=== PATIENT | female | born 1975 | race Caucasian/White ===

== ENCOUNTER 2018-02-21 18:23 | Emergency (ER) | payer BC, OTHER ==
[2018-02-21 18:52] VITALS: BP 96/61
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
[2018-02-21] MEDS ORDERED: HYDROcodone/ACETAMIN 5-325 MG* 1 TAB PO ONE ×2 (19:09→19:44)
--- NOTE | 2018-02-21 19:26 | RAD ---
HISTORY: fall with distal radius swelling COMPARISONS: None VIEWS: 3, Frontal, lateral, and oblique views of the left wrist FINDINGS: BONE DENSITY: Normal. BONES: There is an impacted and slightly volar angulated fracture of the distal radius with articular extension. There is a nondisplaced fracture of the styloid process of the ulna. JOINTS: There is no arthropathy. ALIGNMENT: There is no dislocation. SOFT TISSUES: Unremarkable. OTHER FINDINGS: None. IMPRESSION: ANGULATED, IMPACTED FRACTURE OF THE DISTAL RADIUS WITH ARTICULAR EXTENSION. NONDISPLACED FRACTURE OF THE STYLOID PROCESS OF THE ULNA.
== END 2018-02-21 20:00 | disposition home or self-care (01) ==
LOC: UCCORT 18:23
DX: S52.502A Unspecified fracture of the lower end of left radius, initial encounter for closed fracture (principal); S52.615A Nondisplaced fracture of left ulna styloid process, initial encounter for closed fracture; S60.511A Abrasion of right hand, initial encounter; V19.3XXA Pedal cyclist (driver) (passenger) injured in unspecified nontraffic accident, initial encounter; Y93.55 Activity, bike riding; Y92.9 Unspecified place or not applicable
CPT/HCPCS: 99213; G0463

== ENCOUNTER 2018-02-27 06:19 | Day surgery (SDC) | payer BC ==
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
[~2018-02-27 06:19] MED LIST: Buffered Lidocaine 0.9% SYRIN* 5 ML/SYR SYRINGE INTRADERM ONE; Sodium Citrate/Citric Acid* 15 ML UDC PO ONE
[2018-02-27] MEDS ORDERED: Sodium Citrate/Citric Acid* 15 ML UDC ONE (06:21)
[2018-02-27] MEDS ORDERED: ceFAZolin 2 GM PREMIX (*) 2 GM/50 ML BAG IVPB ONE (06:28)
[2018-02-27] MEDS ORDERED: ROPIVACAINE 5 MG/ML 30 ML BTL (0.5%) ONE ×2 (07:15→07:31)
[2018-02-27] MEDS ORDERED: fentaNYL* 50 MCG/ML 2 ML VIAL (100 MCG VIAL) ONE (07:28)
[2018-02-27] MEDS ORDERED: Propofol* 10 MG/ML 20 ML BTL IV PUSH ONE (07:28)
[2018-02-27] MEDS ORDERED: Midazolam* 1 MG/ML 2 ML VIAL (2 MG) ONE (07:28)
[2018-02-27] MEDS ORDERED: Lidocaine 2% PF * 5 ML VIAL ONE (07:28)
[2018-02-27] MEDS ORDERED: Ondansetron INJ* 2 MG/ML VIAL IV PRN (08:47)
[2018-02-27] MEDS ORDERED: Naloxone* 0.4 MG/ML 1 ML VIAL IV PRN (08:47)
[2018-02-27] MEDS ORDERED: Ketorolac INJ* 30 MG/ML 1 ML VIAL IV PRN (08:47)
[2018-02-27] MEDS ORDERED: Ketorolac INJ* 30 MG/ML 1 ML VIAL ONE (09:04)
[2018-02-27] MEDS ORDERED: HYDROcodone/ACETAMIN 5-325 MG* 1 TAB ONE (09:15)
--- NOTE | 2018-02-27 10:44 | RAD ---
CPT II Codes: G9500 Indication: Traumatic fracture distal radius. Fluoroscopic services provided for referring physician. 1 minute and 10 seconds of fluoroscopy time was used. 2 spot image demonstrates internal fixation with a volar plate and screws of the distal radius. IMPRESSION: Internal fixation fracture of the distal radius.
[2018-02-27 10:53] VITALS: BP 120/64
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
== END 2018-02-27 10:22 | disposition home or self-care (01) ==
LOC: OREAST 06:19
PROVIDERS: ATTEND Orthopaedic Surgery
DX: S52.572A Other intraarticular fracture of lower end of left radius, initial encounter for closed fracture (principal); V19.9XXA Pedal cyclist (driver) (passenger) injured in unspecified traffic accident, initial encounter; Y93.55 Activity, bike riding; Y92.9 Unspecified place or not applicable; Z87.891 Personal history of nicotine dependence; R31.9 Hematuria, unspecified; G89.18 Other acute postprocedural pain
CPT/HCPCS: 76000; 81025; A9270-GY; C1713; C1776; J0690; J1885; J2250; J2704; J2795; J3010